=== PATIENT | female | born 2000 | race Caucasian/White ===

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

== ENCOUNTER 2021-07-28 11:52 | Emergency (ER) | payer MEDICAID ==
[~2021-07-28] VITALS: Ht 160 cm; Wt 108.9 kg
[2021-07-28 12:04] VITALS: BP 121/74
--- NOTE | 2021-07-28 12:38 | NUR ---
X-Ray at bedside.
--- NOTE | 2021-07-28 12:45 | NUR ---
KAYLI AND FLU SWABBED AND SENT TO LAB AT THIS TIME
--- NOTE | 2021-07-28 13:05 | NUR ---
21 Y/O F BIB SELF FROM HOME, PATIENT PRESENTS TO ED WITH SOB, COUGH, RUNNY NOSE AND WHEEZING. PT STATES SHE IS ALSO HAVING LOWER BACK PAIN. DENIES DYSURIA, HEMATURIA, OR CP AT THIS TIME. DENIES N/V/D; SKIN IS PINK/WARM/DRY; AAOX4 WITH EVEN AND STEADY GAIT; LUNGS CLEAR BL; HR EVEN AND REGULAR; PT DENIES ANY FEVER AT THIS TIME; PATIENT STATES PAIN OF 5/10 AT THIS TIME; VSS; PATIENT POSITIONED FOR COMFORT; HOB ELEVATED; BEDRAILS UP X2; BED DOWN. ER MD MADE AWARE OF PT STATUS. PMH: ASTHMA NKA MED: ALBUTEROL, IBUPROFEN 800MG
[2021-07-28] MEDS ORDERED: AZIT250T4 PO (14:00)
[2021-07-28] MEDS ORDERED: ALBU0.0912 IH (14:00)
[2021-07-28] MEDS ORDERED: PRED20TA5 PO (14:00)
[2021-07-28] MEDS ORDERED: PROM118S5 PO (14:00)
[2021-07-28] MEDS ORDERED: PRON INH (14:00)
[2021-07-28 14:21] VITALS: BP 121/74
--- NOTE | 2021-07-28 14:22 | NUR ---
Patient discharged with v/s stable. Written and verbal after care instructions given and explained. Patient alert, oriented and verbalized understanding of instructions. Ambulatory with steady gait. All questions addressed prior to discharge. ID band removed. Patient advised to follow up with PMD. Rx of ALBUTEROL HFA AND NEB, AZTHROMYCIN, PREDNISONE, PROMETHAZINE (SENT) given. Patient educated on indication of medication including possible reaction and side effects. Opportunity to ask questions provided and answered.
== END 2021-07-28 14:22 | disposition home or self-care (01) ==
LOC: MED 11:52
DX: J45.909 Unspecified asthma, uncomplicated (principal); J06.9 Acute upper respiratory infection, unspecified; Z20.822 Contact with and (suspected) exposure to COVID-19; Z79.2 Long term (current) use of antibiotics; Z79.51 Long term (current) use of inhaled steroids; Z79.899 Other long term (current) drug therapy
CPT/HCPCS: 71045; 87804; 99284

== ENCOUNTER 2021-09-15 07:37 | Emergency (ER) | payer MEDICAID ==
[~2021-09-15] VITALS: Ht 160 cm; Wt 112.0 kg
[~2021-09-15 07:37] MED LIST: ALBU0.0912 IH; AZIT250T4 PO; PRED20TA5 PO; PROM118S5 PO; PRON INH
[2021-09-15 07:54] VITALS: BP 146/59
[2021-09-15] MEDS ORDERED: methylPREDNISolone SS 60 MG in WATER STERILE 1 ML IV ONE (07:55)
[2021-09-15] MEDS ORDERED: ALBUTEROL SULFATE/IPRATROPIU 3 ML SOL IH ONE (07:55)
--- NOTE | 2021-09-15 08:08 | NUR ---
PT TAKEN TO CHAIR A VIA W/C.
[2021-09-15] MEDS ORDERED: WATER STERILE 10 ML MC ONE (08:46)
[2021-09-15] MEDS ORDERED: methylPREDNISolone SS 40 MG/ML VIAL ONE (08:46)
[2021-09-15] MEDS ORDERED: ALBUTEROL 0.083% 2.5 MG/3 ML NEBU INH ONE (09:00)
--- NOTE | 2021-09-15 09:26 | NUR ---
RT AT PATIENT BEDSIDE
[2021-09-15] MEDS ORDERED: PRON INH (10:06)
[2021-09-15] MEDS ORDERED: PRED20TA5 PO (10:06)
[2021-09-15 10:53] VITALS: BP 149/81
--- NOTE | 2021-09-15 10:54 | NUR ---
Patient discharged with v/s stable. Written and verbal after care instructions given FOR ASTHMA ATTACK and explained. Patient alert, oriented and verbalized understanding of instructions. Ambulatory with steady gait. All questions addressed prior to discharge. ID band removed. Patient advised to follow up with PMD. Rx of ALBUTEROL AND PREDNISONE given. Patient educated on indication of medication including possible reaction and side effects. Opportunity to ask questions provided and answered.
== END 2021-09-15 10:54 | disposition home or self-care (01) ==
LOC: MED 07:37
DX: J45.901 Unspecified asthma with (acute) exacerbation (principal); Z79.899 Other long term (current) drug therapy
CPT/HCPCS: 71045; 87426; 94640; 96374; 99285; J2920; J7613

== ENCOUNTER 2022-02-05 16:15 | Emergency (ER) | payer MEDICAID ==
[~2022-02-05] VITALS: Ht 160 cm; Wt 112.5 kg
[2022-02-05 16:32] VITALS: BP 110/74
[2022-02-05] MEDS ORDERED: ALBUTEROL SULFATE/IPRATROPIU 3 ML SOL IH ONE (16:45)
[2022-02-05] MEDS ORDERED: predniSONE 20 MG TAB PO ONE (16:45)
--- NOTE | 2022-02-05 17:00 | NUR ---
21YO FEMALE PT C/O SOB AND COUGH [id number]. PT STATES 6/10 TIGHT CHEST PAIN WITH NO RADIATION WHEN SOB OR COUGHING. PT PRESENTS WITH NON PRODUCTIVE MOIST COUGH AND BILATERAL WHEEZING. PT STATES TAKING ALBUTEROL DAILY AND HAS MILD RELIEF. DENIES N/V/D OR FEVERS. PT O2 AT 94 ROOM AIR, RESPIRATIONS EVEN AND UNLABORED. PT AAOX4 . PUT ON MONITOR ,ALL NEEDS MET AT THIS TIME. HX: ASTHMA, SEASONAL ALLERGIES NKA
--- NOTE | 2022-02-05 17:06 | NUR ---
RT AT BEDSIDE FOR BREATHING TREATMENT
[2022-02-05] MEDS: ALBUTEROL SULFATE/IPRATROPIU 3 ML SOL IH ONE ×2 (17:37→17:46)
[2022-02-05] MEDS ORDERED: PRED20TA5 PO (17:55)
[2022-02-05] MEDS ORDERED: PROM118S5 PO (17:55)
--- NOTE | 2022-02-05 18:26 | NUR ---
DPatient discharged with v/s stable. Written and verbal after care instructions FOR ASTHMA given and explained. Patient alert, oriented and verbalized understanding of instructions. Ambulatory with steady gait. All questions addressed prior to discharge. ID band removed. Patient advised to follow up with PMD. Rx of DELTASONE AND PROMETHAZINE/DEXTROTHORPHAN given. Opportunity to ask questions provided and answered.
[2022-02-05 18:27] VITALS: BP 150/69
--- NOTE | 2022-02-05 18:30 | NUR ---
The patient's care was reviewed and supervised by Mary Castillo RN.
== END 2022-02-05 18:26 | disposition home or self-care (01) ==
LOC: MED 16:15
DX: J45.901 Unspecified asthma with (acute) exacerbation (principal); Z79.899 Other long term (current) drug therapy
CPT/HCPCS: 94640; 99283; J7512

== ENCOUNTER 2023-05-29 16:00 | Emergency (ER) | payer MEDICAID ==
[~2023-05-29] VITALS: Ht 160 cm; Wt 92.1 kg
[2023-05-29 16:43] VITALS: BP 111/69; PULSE 72; RESP 19; TEMP 97.7; O2SAT 98
[2023-05-29] MEDS ORDERED: ALBU0.0912 IH (18:12)
[2023-05-29] MEDS ORDERED: DIPH25TA53 PO (18:12)
[2023-05-29] MEDS ORDERED: PRED20TA5 PO (18:12)
[2023-05-29] MEDS ORDERED: ALBU-71 NEB (18:12)
[2023-05-29 18:25] VITALS: BP 111/69; PULSE 72; RESP 19; TEMP 97.7; O2SAT 98
== END 2023-05-29 18:25 | disposition home or self-care (01) ==
LOC: MED 16:00
DX: J45.909 Unspecified asthma, uncomplicated (principal); R21 Rash and other nonspecific skin eruption; Z79.899 Other long term (current) drug therapy; Z79.2 Long term (current) use of antibiotics; Z88.0 Allergy status to penicillin
CPT/HCPCS: 99283